=== PATIENT | female | born 1950 | race Caucasian/White ===

== ENCOUNTER 2021-09-18 08:38 | Outpatient (CLI) | payer MEDICARE, BC, SELFPAY ==
--- NOTE | 2021-09-18 09:00 | CRLHL7_ITS ---
For Patients: As a result of the Century Cures Act, medical imaging exams and procedure reports are released immediately into your electronic medical record. You may view this report before your referring provider. If you have questions, please contact your health care provider. INDICATION: Chronic sinusitis. TECHNIQUE: CT sinus without contrast. COMPARISON: None. FINDINGS: Paranasal sinuses: Complete opacification of the right maxillary sinus. Mucosal thickening in the left maxillary, ethmoid, and sphenoid sinuses. Frontal sinuses are clear. No air-fluid levels or frothy secretions. No calcifications or osseous erosion. Mastoid air cells are clear. The ostiomeatal units are opacified and obstructed. The fovea ethmoidalis and orbital jansen are intact. The nasal septum is minimally deviated to the right breast Mild hypertrophy of left turbinates compared to the right. Orbits and globes: Unremarkable. Visualized intracranial contents: Unremarkable. Soft tissues: Unremarkable. IMPRESSION: Complete opacification of the right maxillary sinus with mucosal thickening in the left maxillary, ethmoid, and sphenoid sinuses consistent with given history of chronic sinusitis. No air-fluid levels or frothy secretions to suggest acute sinusitis. Please note that all CT scans at this facility use dose modulation, iterative reconstruction, and/or weight-based dosing when appropriate to reduce radiation dose to as low as reasonably achievable. Dictated by Juan R Seth MD @ 09/18/2021 10:28:20 AM (Electronically Signed)
== END 2021-09-18 08:39 | disposition home or self-care (01) ==
PROVIDERS: Visit Provider Otolaryngology
DX: J32.9 Chronic sinusitis, unspecified (principal); J32.0 Chronic maxillary sinusitis; J32.3 Chronic sphenoidal sinusitis
CPT/HCPCS: 70486

== ENCOUNTER 2021-11-01 10:38 | Day surgery (SDC) | payer MEDICARE, BC, SELFPAY ==
[2021-11-01] VITALS (12 sets, daily range): BP systolic 127–156; BP diastolic 70–81; PULSE 56–69; RESP 12–20; TEMP 36.1–36.4; O2SAT 95–98; BMI 31.9
[2021-11-01] MEDS: LACTATED RINGERS 1000 ML 1,000 ML 35 ML IV (11:00)
[2021-11-01] MEDS: BUPIVACAINE 0.5%/EPINEPHRINE 0.9 MG (30.9 ML) INJECTION (12:55)
[2021-11-01] MEDS: COCAINE HCL 4 % 4 ML SOLUTION NOSTRIL-B (12:57)
--- NOTE | 2021-11-01 13:01 | W.ANESCHARGE ---
Anesthesia Charges Start Date/Time Anesthesia Start Date: 11/01/21 Anesthesia Start Time: 12:27 Stop Date/Time Anesthesia Stop Date: 11/01/21 Anesthesia Stop Time: 13:21 Summary Emergency: No
--- NOTE | 2021-11-01 13:30 | W.PM.ENTPROC ---
Procedure Note Date of procedure: 11/01/21 Procedure: Preoperative diagnosis chronic pansinusitis with the exception of frontal sinus, mild right septal deviation Postoperative diagnosis same plus inspissated mucus and possible fungus right maxillary sinus. Purulent drainage appeared to be coming from right maxillary sinus and no other sinuses. Procedure modified nasal septoplasty, endoscopic bilateral maxillary antrostomies with tissue removal, bilateral endoscopic ethmoidectomies complete, endoscopic bilateral sphenoidotomies. Under general endotracheal anesthesia patient was prepped and draped in usual fashion and the nose injected and decongested. A incision was made in the septal mucosa anterior to the right septal deflection and mucosa was elevated with a Kaity dissector. Is able to then incise the cartilage just anterior to the bone and push the septum back to midline. No sutures were placed Remainder procedure was done with the aid of a 0 degree endoscope and image guidance with good registration. On the left side the maxillary sinus outflow tract was occluded by polyp tissue this was removed and a moderate amount of polyp tissue removed from the floor of the sinus as well as a small amount of inspissated mucus. The ethmoid bulla had been opened previously and was occluded by polypoid tissue which was removed the more posterior ethmoid cells appeared to be relatively free of disease. The sphenoid sinus was then entered via the posterior ethmoid cells and there was no purulent drainage in the sphenoid sinus. On the right side there appeared to be purulent drainage coming from right maxillary sinus. The outflow tract was completely occluded by polyp tissue this was all removed a large amount of inspissated mucus and polypoid tissue was removed. Most of the mucus and tissue was normal colored but some was bright green. There was no brown tissue the suggest fungus. Nonetheless specimens were sent for pathology. The ethmoid sinus with similar to the right side with the bulla was opened and there was a small amount of polypoid tissue. The sphenoid sinus was entered with the suction in there is no inspissated mucus. Merocel packs were trim lengthwise in color with Bactroban and placed in the middle meatus on each side. A dissolvable pack was placed beneath that. The patient tolerated procedure well was taken recovery in satisfactory condition. Blood loss during procedure was less than 10 mL. There were no complications Surgeon: Shamir Ochoa MD
--- NOTE | 2021-11-01 13:39 | W.ANESCHARGE ---
Anesthesia Charges Start Date/Time Anesthesia Start Date: 11/01/21 Anesthesia Start Time: 12:27 Stop Date/Time Anesthesia Stop Date: 11/01/21 Anesthesia Stop Time: 13:21 Summary Emergency: No
--- NOTE | 2021-11-01 13:42 | SUR.PHASEI ---
PT. VITAL SIGNS STABLE. TRANSFER TO [facility] VIA CART.
== END 2021-11-01 15:14 | disposition home or self-care (01) ==
PROVIDERS: Visit Provider Otolaryngology
PROC: (CPT 31231; principal; 2021-11-01 12:15)
DX: J34.2 Deviated nasal septum (principal); J32.4 Chronic pansinusitis; J33.8 Other polyp of sinus
CPT/HCPCS: 30520; 31267; 31255; 31259; 00160; 88305; 88311; A9270; J0330; J1100; J2405; J2704; J3010; J7120

== ENCOUNTER 2024-03-30 10:35 | Outpatient (CLI) | payer MEDICARE, BC, SELFPAY ==
--- NOTE | 2024-03-30 11:00 | CRLHL7_ITS ---
For Patients: As a result of the Century Cures Act, medical imaging exams and procedure reports are released immediately into your electronic medical record. You may view this report before your referring provider. If you have questions, please contact your health care provider. Indication: CHRONIC SINUSITIS Technique: Performed without IV contrast Comparison: 09/18/2021 Findings: Frontal sinuses: Minimal inferior mucosal thickening noted. Ethmoid sinuses: Minimal opacification of the ethmoid air cells. Maxillary sinuses: Complete opacification of the right maxillary sinus. Near-complete opacification of the left maxillary sinus. The maxillary sinus drainage pathways are obstructed on both sides. Sphenoid sinuses: Near complete opacification of the left sphenoid sinus with occlusion of the sinus drainage pathway. Mild mucosal thickening right sphenoid sinus with patent sphenoid ethmoid recess Nasal Cavity: Postop changes noted. Septum midline. No polyps. Mastoid air cells are clear. Intact middle ear cavities. Incidental chronic hyperostosis frontalis internus. No hydrocephalus. Impression: 1. Chronic severe bilateral maxillary sinus disease with occlusion of the maxillary sinus drainage pathways. Sinus disease is worse on the left compared to the prior study. 2. Chronic severe left sphenoid sinus disease which has worsened in the interim. 3. Mild ethmoid sinus disease which has improved. Please note that all CT scans at this facility use dose modulation, iterative reconstruction, and/or weight-based dosing when appropriate to reduce radiation dose to as low as reasonably achievable. Dictated by Trever Dsouza MD @ 03/30/2024 3:42:49 PM (Electronically Signed)
== END 2024-03-30 10:36 | disposition home or self-care (01) ==
LOC: CT 10:38
PROVIDERS: Visit Provider Otolaryngology
DX: J32.9 Chronic sinusitis, unspecified (principal); J32.0 Chronic maxillary sinusitis; J32.3 Chronic sphenoidal sinusitis; J32.2 Chronic ethmoidal sinusitis
CPT/HCPCS: 70486

== ENCOUNTER 2024-04-29 09:44 | Day surgery (SDC) | payer MEDICARE, BC, SELFPAY ==
[2024-04-29] VITALS (11 sets, daily range): BP systolic 149–180; BP diastolic 72–88; PULSE 63–71; RESP 16–20; TEMP 36.1–36.7; O2SAT 96–99; BMI 31.3
[2024-04-29] MEDS: LACTATED RINGERS 1000 ML 1,000 ML 100 ML IV (10:43)
[2024-04-29] MEDS: SODIUM CHLORIDE 0.9 % (FLUSH) 10 ML SYRINGE IVF (10:43)
[2024-04-29] MEDS: OXYMETAZOLINE 0.05% NASAL SPRAY 2 SPRAY NOSTRIL-B (10:44)
[2024-04-29] MEDS: COCAINE HCL 4 % 4 ML SOLUTION NOSTRIL-B (11:50)
[2024-04-29] MEDS: BUPIVACAINE 0.5%/EPINEPHRINE 0.9 MG (30.9 ML) INJECTION (11:58)
[2024-04-29] MEDS: MUPIROCIN 1 GM PACKET 1 APPLIC TOPICAL (12:10)
--- NOTE | 2024-04-29 12:25 | W.ANESCHARGE ---
Anesthesia Charges Start Date/Time Anesthesia Start Date: 04/29/24 Anesthesia Start Time: 11:35 Stop Date/Time Anesthesia Stop Date: 04/29/24 Anesthesia Stop Time: 12:24 Summary Extremes of Age - Over 70 or under 1: MDA Coding CPT Codes CPT Codes: ANESTH NOSE/SINUS SURGERY - 68102 ([id number]) P2 - PATIENT W/MILD SYST DISEASE, QK - CARPET SEWER 2-4 CNCRNT ANES PROC, QX - PROFESSOR/NURSE ANESTHETIST SVC W/ MD MED DIRECTION Additional Codes: Summary - Extremes of Age - Over 70 or under 1: MDA ([id number])
--- NOTE | 2024-04-29 12:35 | W.ANESCHARGE ---
Anesthesia Charges Start Date/Time Anesthesia Start Date: 04/29/24 Anesthesia Start Time: 11:35 Stop Date/Time Anesthesia Stop Date: 04/29/24 Anesthesia Stop Time: 12:24 Summary Extremes of Age - Over 70 or under 1: PURIFICATION OPERATOR Coding CPT Codes CPT Codes: ANESTH NOSE/SINUS SURGERY - 98151 ([id number]) P2 - PATIENT W/MILD SYST DISEASE, QK - LABORER FILTER PLANT 2-4 CNCRNT ANES PROC, QX - PURIFICATION OPERATOR SVC W/ MD MED DIRECTION Additional Codes: Summary - Extremes of Age - Over 70 or under 1: PURIFICATION OPERATOR ([id number])
[2024-04-29] MEDS: fentaNYL 100 MCG/2 ML inj 50 MCG IVP (12:40)
[2024-04-29] MEDS: ACETAMINOPHEN 325 MG TABLET PO (13:17)
--- NOTE | 2024-04-29 13:48 | W.PM.ENTPROC ---
Procedure Note Date of procedure: 04/29/24 Procedure: Preop diagnosis bilateral opacified maxillary sinuses, chronic left sphenoid sinusitis Postoperative diagnosis same with purulent fluid right maxillary sinus and polypoid mucosa left maxillary sinus possible fungal debris, purulent fluid left sphenoid sinus Procedure endoscopic and image guided bilateral maxillary antrostomies with tissue removal, left sphenoidotomy again with tissue removal Under general tracheal anesthesia patient was prepped and draped in usual fashion the image guidance system registered. The 0 degree scope was used throughout the procedure. On the left side the sphenoid sinus was easily entered with a suction and the opening enlarged to 5 mm. This was done with an ethmoid forceps. A moderate amount of purulent fluid was aspirated. On the left side the inferior quarter of the uncinate process was taken down it was difficult to visualize this and the sinus and entered with a curved suction. A large amount of fluid and and debris was removed. An up-biting ethmoid forceps for small then large was used to enlarge the antrostomy doing 9 cm diameter and a moderate amount of polypoid tissue and some dark brown material which may be fungal was removed from the sinus. A Merocel pack was placed on this side The antrostomy was repeated on the right side by removing the inferior portion of the uncinate and making a 9 mm antrostomy. A large amount of purulent fluid and some polypoid mucosa was removed from the sinus. A Merocel pack was placed on this side as well. The patient procedure well was taken recovery satisfactory condition. Blood loss was approximately 100 mL. Surgeon: Sahmir Ochoa MD
== END 2024-04-29 13:46 | disposition home or self-care (01) ==
PROVIDERS: PCP Family Medicine; Visit Provider Otolaryngology
PROC: (CPT 31231; principal; 2024-04-29 11:15)
DX: J32.0 Chronic maxillary sinusitis (principal); J32.3 Chronic sphenoidal sinusitis; J33.8 Other polyp of sinus
CPT/HCPCS: 31267; 31288; 00160; 88305; 88312; 99100; A9270; J0330; J1100; J2250; J2405; J2704; J3010; J7120

== ENCOUNTER 2024-05-26 11:04 | Outpatient (CLI) | payer MEDICARE, BC, SELFPAY | END 2024-05-26 11:05 | disposition home or self-care (01) | LOC: FBOREF 11:05 | PROVIDERS: PCP Family Medicine; Visit Provider Otolaryngology | DX: J32.9 Chronic sinusitis, unspecified (principal); B96.89 Other specified bacterial agents as the cause of diseases classified elsewhere | CPT/HCPCS: 87070; 87186 ==